=== PATIENT | male | born 1980 | race Caucasian/White ===

== ENCOUNTER 2019-03-23 07:37 | Emergency (ER) | payer SELFPAY ==
[2019-03-23] MEDS: HYDROmorphone 2 MG/ML Syringe IVPUSH ONE ×2 (07:47→07:54)
[2019-03-23] MEDS ORDERED: HYDROmorphone 2 MG/ML SDV ONE (08:00)
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
[2019-03-23] MEDS ORDERED: fentaNYL 100 MCG/2 ML SDV IVPUSH ONE (08:46)
[2019-03-23] MEDS ORDERED: Ketorolac 30 MG/ML SDV IVPUSH ONE (08:49)
[2019-03-23] MEDS ORDERED: fentaNYL 100 MCG/2 ML SDV ONE (08:50)
[2019-03-23] MEDS ORDERED: Ketorolac 30 MG/ML SDV ONE (08:58)
[2019-03-23] MEDS ORDERED: LORazepam 2 MG/ML SDV IVPUSH ONE (09:41)
[2019-03-23] MEDS ORDERED: LORazepam 2 MG/ML SDV ONE (09:44)
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
== END 2019-03-23 10:59 ==
LOC: EDSEX → LB.ED 07:41
DX: S92.352A Displaced fracture of fifth metatarsal bone, left foot, initial encounter for closed fracture (principal); V49.49XA Driver injured in collision with other motor vehicles in traffic accident, initial encounter
CPT/HCPCS: 29515; 36415; 73610-LT; 73700-LT; 80048; 85025; 96374; 96375; 99285-25; A0425; A0429; J1170; J1885; J2060; J3010

== ENCOUNTER 2019-03-27 10:26 | Emergency (ER) | payer SELFPAY ==
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
== END 2019-03-27 11:50 | disposition home or self-care (01) ==
LOC: LB.ED 10:26
DX: M25.571 Pain in right ankle and joints of right foot (principal); F17.210 Nicotine dependence, cigarettes, uncomplicated
CPT/HCPCS: 73600-LT; 99283

== ENCOUNTER 2020-02-25 11:36 | Emergency (ER) | payer MEDICAID ==
[2020-02-25] MEDS ORDERED: Acetaminophen 500 MG Tab ONE (12:58)
[2020-02-25] MEDS ORDERED: Acetaminophen 500 MG Tab PO ONE (13:05)
[2020-02-25] MEDS ORDERED: Ibuprofen 600 MG Tab PO ONE (13:15)
[2020-02-25] MEDS ORDERED: Albuterol/Ipratropium 3.0-0.5 MG/3 ML Neb Soln NEB ONE (13:15)
[2020-02-25] MEDS ORDERED: Sodium Chloride 0.9% 1,000 ML IV ONE (13:18)
[2020-02-25] MEDS ORDERED: Sodium Chloride 0.9% 10 ML Syringe FLUSH PRN (13:18)
[2020-02-25] MEDS ORDERED: Albuterol/Ipratropium 3.0-0.5 MG/3 ML Neb Soln ONE (13:29)
[2020-02-25] MEDS ORDERED: Albuterol/Ipratropium 3.0-0.5 MG/3 ML Neb Soln NEB PRN (13:32)
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
[2020-02-25] MEDS ORDERED: Ibuprofen 600 MG Tab ONE (13:44)
--- NOTE | 2020-02-25 14:12 | CR ---
DATE OF SERVICE: 02/25/20 CLINICAL DATA: Cough, fever AP chest: No priors. The patient has taken a poor inspiration. The heart size is normal. Minimal atelectatic changes in both lung bases. The lungs are otherwise clear. No pneumothorax. No pleural effusions. MTDD
== END 2020-02-25 15:00 | disposition home or self-care (01) ==
LOC: LB.ED 11:36
DX: J18.9 Pneumonia, unspecified organism (principal); F17.210 Nicotine dependence, cigarettes, uncomplicated; Z79.899 Other long term (current) drug therapy; Z20.828 Contact with and (suspected) exposure to other viral communicable diseases
CPT/HCPCS: 36415; 71045; 80053; 85025; 87635; 96360; 99283; 99284; A9270; J7030; J7620-GY; U0002